=== PATIENT | female | born 1955 | race African-American/Black ===

== ENCOUNTER 2024-07-27 08:50 | Day surgery (SDC) | payer MEDICARE, MEDICAID ==
[~2024-07-27] VITALS: Ht 167.6 cm; Wt 91.4 kg
[2024-07-27] VITALS (17 sets, daily range): BP systolic 157–200; BP diastolic 85–152; PULSE 72–97; RESP 12–25; O2SAT 96–100
[~2024-07-27 08:50] MED LIST: APIX2.5T PO; ATOR20TA PO; BACL20TA PO; GABA-1405 PO; TRAZ-251 PO; VENL150T3 PO; ibup PO
[2024-07-27] MEDS ORDERED: fentaNYL/PF 50MCG/1 ML 2ML syringe ONE (10:19)
[2024-07-27] MEDS ORDERED: MIDAZolam 1 MG/ML 5ML VIAL ONE (10:19)
[2024-07-27] MEDS ORDERED: diphenhydrAMINE 50 mg/ml inj ONE (10:20)
[2024-07-27] MEDS ORDERED: simethicone 40mg/0.6ml oral drops 30ml ONE (11:04)
== END 2024-07-27 12:04 | disposition home or self-care (01) ==
LOC: GI LAB 08:50
PROVIDERS: ATTEND Internal Medicine Gastroenterology
DX: K52.9 Noninfective gastroenteritis and colitis, unspecified (principal); D12.0 Benign neoplasm of cecum; D12.2 Benign neoplasm of ascending colon; K57.30 Diverticulosis of large intestine without perforation or abscess without bleeding; I10 Essential (primary) hypertension; Z98.890 Other specified postprocedural states
CPT/HCPCS: 45380; 45385; A4620; C1889; J1200; J2250; J3010; J7030; Z7512; 88305; 99152; 99153

== ENCOUNTER → 2024-10-21 | Outpatient (CLI) | payer MEDICARE, MEDICAID ==
[~2024-10-21] MED LIST changes: +ALBU18HF2 IH; +ALBU8.5H17 INH; +AMA100C PO; +BECL8.7A7 IH; +BENZ1TAB78 PO; +BUDE10.2 INH; +COU1T PO; +DILT120C88 PO; +DULO60CA65 PO; +LAMO100T2 PO; +METF500T PO; +OMEP40CA21 PO; +QUET150T2 PO; +QUET50TA15 PO; +VENL-190 PO; +VENL150C58 PO; +WARF10TA50 PO; +ZOLP10TA5 PO; +coumadin PO
[2024-10-21 11:00] VITALS: PULSE 83; RESP 18; O2SAT 96
--- NOTE | 2024-10-21 15:01 | PROCEDURE NOTE - Respiratory ---
Procedure Note-Respiratory Providers to CC Copies To 1: DANIELADAYANARA Procedure Name: This is a spirometry study dated October 21, 2024. Spirometry measurements: Both the forced vital capacity and the FEV1 are in the normal range. The FEV1 ratio is also normal. The flow rates are normal with the exception of some loss of the terminal flow rates FEF 75%. Conclusion: The majority of this data is within normal limits. However, the reduced terminal flow rates measurement suggests the possibility of very mild obstructive ventilatory defect. This patient may be showing evidence of very mild asthma. Continued use of Ventolin inhaler is recommended. We have no previous studies for comparison. JESENIA REYNOSO MD October 21, 2024 15:00
== END | disposition home or self-care (01) ==
LOC: RT 10:22
PROVIDERS: ATTEND Nurse Practitioner
DX: R06.02 Shortness of breath (principal)
CPT/HCPCS: 94010; 94760

== ENCOUNTER 2025-03-02 14:26 | Outpatient (CLI) | payer MEDICARE, MEDICAID ==
--- NOTE | 2025-03-02 19:26 | RADIOLOGY REPORT ---
EXAM: CT CT LOWER EXTREMITY INDICATION: PAIN IN LEFT KNEE TECHNIQUE: Axial images of left knee have been obtained along with coronal and sagittal reformatted images. All CT scans at this facility use dose modulation, iterative reconstruction, and/or weight based dosing when appropriate to reduce radiation dose to as low as reasonably achievable. COMPARISON: None FINDINGS: BONES: No CT evidence of an acute fracture or aggressive osseous lesion. left total knee arthroplasty. Question slight osseous lucency measuring greater than 2 mm along the undersurface of the anterior superior aspect of the femoral component measuring up to 2 mm which may reflect loosening ([id number]). MUSCLES: No abnormal attenuation. JOINT SPACES: Trace knee joint effusion TENDONS/LIGAMENTS: Intact. OTHER: Subcutaneous adipose tissue edema of the anterior superior knee IMPRESSION: 1. No CT evidence of an acute fracture. 2. Question slight osseous lucency measuring greater than 2 mm along the undersurface of the anterior superior aspect of the femoral component measuring up to 2 mm which may reflect loosening.
== END 2025-03-02 23:59 | disposition home or self-care (01) ==
LOC: RAD 14:26
PROVIDERS: ATTEND Physician Assistant Surgical
DX: M25.462 Effusion, left knee (principal); M25.562 Pain in left knee; Z96.652 Presence of left artificial knee joint
CPT/HCPCS: 73700